=== PATIENT | male | born 1965 | race African-American/Black ===

== ENCOUNTER 2019-02-12 13:36 | Inpatient (IN) | payer OTHER ==
[2019-02-12 16:56] VITALS: BMI 23.9
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
[2019-02-12] MEDS ORDERED: MENTHOL/PHENOL 1 EACH UD MM PRN (18:02)
[2019-02-12] MEDS ORDERED: ACETAMINOPHEN 325 MG TABLET (FP) PO PRN (18:02)
[2019-02-12] MEDS ORDERED: guaiFENesin 200 MG/10 ML 10 ML UNIT-DOSE CUPS PO PRN (18:02)
[2019-02-12] MEDS ORDERED: IBUPROFEN 400 MG TABLET (FP) PO PRN (18:02)
[2019-02-12] MEDS ORDERED: MAG HYDROX/AL HYDROX/SIMETH 30 ML UNIT-DOSE CUP PO PRN (18:02)
[2019-02-12] MEDS ORDERED: MAGNESIUM HYDROX 2400MG/30ML ORAL SUSPENSION 30 ML CUP PO PRN (18:02)
[2019-02-12] MEDS ORDERED: MAGNESIUM CITRATE 300 ML BOTTLE PO PRN (18:02)
[2019-02-12] MEDS ORDERED: hydrOXYzine PAMOATE 50 MG CAPSULE (FP) PO PRN (18:02)
[2019-02-12] MEDS ORDERED: P-EPHED 60MG/TRIPROLIDI 2.5MG TABLET PO PRN (18:02)
[2019-02-12] MEDS ORDERED: LOPERAMIDE HCL 2 MG CAPSULE PO PRN (18:02)
[2019-02-12] MEDS ORDERED: NICOTINE POLACRILEX 2 MG GUM BC PRN (18:02)
[2019-02-12] MEDS: MELATONIN 5 MG TABLETS PO PRN (21:16)
[2019-02-12] MEDS: THIAMINE HCL 100 MG TABLET (FP) PO SCH (21:16)
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
[2019-02-13] MEDS: NICOTINE 14 MG/24 HOURS TOPICAL PATCH TD SCH (11:36)
[2019-02-13] MEDS: PRENATAL VITAMINS W/ FOLIC ACID TABLET (FP) PO SCH (11:36)
[2019-02-13 11:56] LABS: HEMATOCRIT 33.6 % (35.4-49); HEMOGLOBIN 10.7 GM/dL (11.7-16.9); MCH 25.3 pg (25.7-33.7); MCHC 31.8 g/dl (32.0-35.9); MEAN CELL VOLUME 79.4 fl (80-96); MEAN PLT VOLUME 9.1 fl (7.5-11.1); PLATELET COUNT 197 K/MM3 (134-434); RBC 4.23 M/mm3 (4.00-5.60); RDW 14.7 % (11.9-15.9); WHITE BLOOD COUNT 7.8 K/mm3 (4.0-10.0)
[2019-02-13 12:31] LABS: ALBUMIN 3.3 g/dl (3.4-5.0); BILIRUBIN,TOTAL 0.2 mg/dL (0.2-1); BLOOD UREA NITROGEN 24.4 mg/dL (7-18); CALCIUM 8.4 mg/dL (8.5-10.1); CREATININE 1.3 mg/dL (0.55-1.3); POTASSIUM 3.6 mmol/L (3.5-5.1)
--- NOTE | 2019-02-13 12:38 | PN ---
[facility] Progress Note Note: Vital Signs Temperature 99.1 F 02/13/19 07:08 Pulse Rate 97 H 02/13/19 07:08 Respiratory Rate 18 02/13/19 07:08 Blood Pressure 137/57 L 02/13/19 07:08 O2 Sat by Pulse Oximetry (%) Laboratory Last Values WBC 7.8 K/mm3 (4.0-10.0) 02/13/19 08:00 RBC 4.23 M/mm3 (4.00-5.60) 02/13/19 08:00 Hgb 10.7 GM/dL (11.7-16.9) L 02/13/19 08:00 Hct 33.6 % (35.4-49) L 02/13/19 08:00 MCV 79.4 fl (80-96) L 02/13/19 08:00 MCH 25.3 pg (25.7-33.7) L 02/13/19 08:00 MCHC 31.8 g/dl (32.0-35.9) L 02/13/19 08:00 RDW 14.7 % (11.9-15.9) 02/13/19 08:00 Plt Count 197 K/MM3 (134-434) 02/13/19 08:00 MPV 9.1 fl (7.5-11.1) 02/13/19 08:00 Sodium 144 mmol/L (136-145) 02/13/19 08:00 Potassium 3.6 mmol/L (3.5-5.1) 02/13/19 08:00 Chloride 110 mmol/L (98-107) H 02/13/19 08:00 Carbon Dioxide 28 mmol/L (21-32) 02/13/19 08:00 Anion Gap 5 MMOL/L (8-16) L 02/13/19 08:00 BUN 24.4 mg/dL (7-18) H 02/13/19 08:00 Creatinine 1.3 mg/dL (0.55-1.3) 02/13/19 08:00 Est GFR (CKD-EPI)AfAm 72.20 02/13/19 08:00 Est GFR (CKD-EPI)NonAf 62.29 02/13/19 08:00 Random Glucose 101 mg/dL (74-106) 02/13/19 08:00 Calcium 8.4 mg/dL (8.5-10.1) L 02/13/19 08:00 Total Bilirubin 0.2 mg/dL (0.2-1) 02/13/19 08:00 AST 481 U/L (15-37) H 02/13/19 08:00 ALT 224 U/L (13-61) H 02/13/19 08:00 Alkaline Phosphatase 65 U/L (45-117) 02/13/19 08:00 Total Protein 6.0 g/dl (6.4-8.2) L 02/13/19 08:00 Albumin 3.3 g/dl (3.4-5.0) L 02/13/19 08:00 Patient stable, abnormal labs elevated liver enzymes elevated BUN d/c magnesium containing products d/c acetaminophen +anemia repeat CBC and CMP and INR Continue to monitor
[2019-02-13] MEDS: HALOPERIDOL 5 MG TABLET (FP) PO SCH ×2 (15:17→21:27)
[2019-02-13] MEDS: BENZTROPINE MESYLATE 1 MG TABLET (FP) PO SCH ×2 (15:17→21:26)
[2019-02-13] MEDS: MELATONIN 5 MG TABLETS PO PRN (21:26)
[2019-02-13] MEDS: THIAMINE HCL 100 MG TABLET (FP) PO SCH (21:26)
[2019-02-13] MEDS ORDERED: HALOPERIDOL 5 MG TABLET (FP) PO SCH (22:00)
[2019-02-13] MEDS ORDERED: BENZTROPINE MESYLATE 1 MG TABLET (FP) PO SCH (22:00)
[2019-02-14] MEDS: BENZTROPINE MESYLATE 1 MG TABLET (FP) PO SCH ×2 (10:48→21:19)
[2019-02-14] MEDS: NICOTINE 14 MG/24 HOURS TOPICAL PATCH TD SCH (10:48)
[2019-02-14] MEDS: PRENATAL VITAMINS W/ FOLIC ACID TABLET (FP) PO SCH (10:48)
[2019-02-14] MEDS: HALOPERIDOL 5 MG TABLET (FP) PO SCH ×2 (10:48→21:19)
[2019-02-14 12:22] LABS: BASO % 0.8 % (0-2.0); EOS % 6.6 % (0-4.5); HEMATOCRIT 32.2 % (35.4-49); HEMOGLOBIN 10.4 GM/dL (11.7-16.9); LYMPH % 39.3 % (8-40); MCH 25.9 pg (25.7-33.7); MCHC 32.4 g/dl (32.0-35.9); MEAN CELL VOLUME 79.8 fl (80-96); MEAN PLT VOLUME 9.1 fl (7.5-11.1); MONO % 9.1 % (3.8-10.2); NEUT % 44.2 % (42.8-82.8); PLATELET COUNT 197 K/MM3 (134-434); RBC 4.03 M/mm3 (4.00-5.60)
[2019-02-14 12:31] LABS: ALBUMIN 3.2 g/dl (3.4-5.0); BILIRUBIN,TOTAL 0.3 mg/dL (0.2-1); BLOOD UREA NITROGEN 13.8 mg/dL (7-18); CALCIUM 8.5 mg/dL (8.5-10.1); POTASSIUM 3.5 mmol/L (3.5-5.1); TOT PROT 5.8 g/dl (6.4-8.2)
[2019-02-14 12:39] LABS: INR 0.96 (0.83-1.09); PROTHROMBIN TIME (PATIENT) 11.3 SEC (9.7-13.0)
--- NOTE | 2019-02-14 13:00 | PN ---
[facility] Progress Note Note: Laboratory Tests 02/13/19 02/13/19 02/13/19 08:00 08:00 08:00 WBC 7.8 RBC 4.23 Hgb 10.7 L Hct 33.6 L MCV 79.4 L MCH 25.3 L MCHC 31.8 L RDW 14.7 Plt Count 197 MPV 9.1 Absolute Neuts (auto) Neutrophils % Lymphocytes % Monocytes % Eosinophils % Basophils % Nucleated RBC % PT with INR INR Sodium 144 Potassium 3.6 Chloride 110 H Carbon Dioxide 28 Anion Gap 5 L BUN 24.4 H Creatinine 1.3 Est GFR (CKD-EPI)AfAm 72.20 Est GFR (CKD-EPI)NonAf 62.29 Random Glucose 101 Calcium 8.4 L Total Bilirubin 0.2 AST 481 H ALT 224 H Alkaline Phosphatase 65 Total Protein 6.0 L Albumin 3.3 L RPR Titer Nonreactive 02/14/19 02/14/19 02/14/19 08:10 08:10 08:10 WBC 8.0 RBC 4.03 Hgb 10.4 L Hct 32.2 L MCV 79.8 L MCH 25.9 MCHC 32.4 RDW 15.0 Plt Count 197 MPV 9.1 Absolute Neuts (auto) 3.5 Neutrophils % 44.2 Lymphocytes % 39.3 Monocytes % 9.1 Eosinophils % 6.6 H Basophils % 0.8 Nucleated RBC % 0 PT with INR 11.30 INR 0.96 Sodium 144 Potassium 3.5 Chloride 111 H Carbon Dioxide 29 Anion Gap 4 L BUN 13.8 Creatinine 1.0 Est GFR (CKD-EPI)AfAm 99.15 Est GFR (CKD-EPI)NonAf 85.55 Random Glucose 68 L Calcium 8.5 Total Bilirubin 0.3 AST 263 H ALT 178 H Alkaline Phosphatase 60 Total Protein 5.8 L Albumin 3.2 L RPR Titer Laboratory Tests 02/13/19 02/13/19 02/13/19 08:00 08:00 08:00 WBC 7.8 RBC 4.23 Hgb 10.7 L Hct 33.6 L MCV 79.4 L MCH 25.3 L MCHC 31.8 L RDW 14.7 Plt Count 197 MPV 9.1 Absolute Neuts (auto) Neutrophils % Lymphocytes % Monocytes % Eosinophils % Basophils % Nucleated RBC % PT with INR INR Sodium 144 Potassium 3.6 Chloride 110 H Carbon Dioxide 28 Anion Gap 5 L BUN 24.4 H Creatinine 1.3 Est GFR (CKD-EPI)AfAm 72.20 Est GFR (CKD-EPI)NonAf 62.29 Random Glucose 101 Calcium 8.4 L Total Bilirubin 0.2 AST 481 H ALT 224 H Alkaline Phosphatase 65 Total Protein 6.0 L Albumin 3.3 L RPR Titer Nonreactive 02/14/19 02/14/19 02/14/19 08:10 08:10 08:10 WBC 8.0 RBC 4.03 Hgb 10.4 L Hct 32.2 L MCV 79.8 L MCH 25.9 MCHC 32.4 RDW 15.0 Plt Count 197 MPV 9.1 Absolute Neuts (auto) 3.5 Neutrophils % 44.2 Lymphocytes % 39.3 Monocytes % 9.1 Eosinophils % 6.6 H Basophils % 0.8 Nucleated RBC % 0 PT with INR 11.30 INR 0.96 Sodium 144 Potassium 3.5 Chloride 111 H Carbon Dioxide 29 Anion Gap 4 L BUN 13.8 Creatinine 1.0 Est GFR (CKD-EPI)AfAm 99.15 Est GFR (CKD-EPI)NonAf 85.55 Random Glucose 68 L Calcium 8.5 Total Bilirubin 0.3 AST 263 H ALT 178 H Alkaline Phosphatase 60 Total Protein 5.8 L Albumin 3.2 L RPR Titer Vital Signs Temperature 99.1 F 02/13/19 07:08 Pulse Rate 97 H 02/13/19 07:08 Respiratory Rate 18 02/14/19 07:38 Blood Pressure 137/57 L 02/13/19 07:08 O2 Sat by Pulse Oximetry (%) Repeat labs show elevated liver enzymes but improving since previous result. PT 11.30 INR 0.96 Will repeat cmp on 02/18/19 oral fluids encouraged monitor clinically
--- NOTE | 2019-02-14 13:36 | EKG ---
Test Reason : Blood Pressure : / mmHG Vent. Rate : 073 BPM Atrial Rate : 073 BPM P-R Int : 134 ms QRS Dur : 094 ms QT Int : 392 ms P-R-T Axes : 051 078 058 degrees QTc Int : 431 ms NORMAL SINUS RHYTHM INCOMPLETE RIGHT BUNDLE BRANCH BLOCK NO PREVIOUS ECGS AVAILABLE Confirmed by GE MANUEL MD ([id number]) on 02/14/2019 1:35:50 PM Referred By: Confirmed By:GE MANUEL MD
[2019-02-14] MEDS: THIAMINE HCL 100 MG TABLET (FP) PO SCH (21:19)
[2019-02-14] MEDS: MELATONIN 5 MG TABLETS PO PRN (21:19)
[2019-02-15] MEDS: HALOPERIDOL 5 MG TABLET (FP) PO SCH ×2 (10:52→21:51)
[2019-02-15] MEDS: PRENATAL VITAMINS W/ FOLIC ACID TABLET (FP) PO SCH (10:52)
[2019-02-15] MEDS: BENZTROPINE MESYLATE 1 MG TABLET (FP) PO SCH ×2 (10:52→21:51)
[2019-02-15] MEDS: NICOTINE 14 MG/24 HOURS TOPICAL PATCH TD SCH (10:52)
[2019-02-15 11:17] LABS: EPI CELLS 0.7 /HPF (0-5/HPF); HYALINE CASTS 3 /lpf (0-8); PH,URINE 5.5 (5.0-8.0); URINE APPEARANCE CLEAR; URINE BACTERIA 0.2 /hpf (NEGATIVE); URINE BILIRUBIN NEGATIVE (NEGATIVE); URINE COLOR YELLOW; URINE GLUCOSE (UA) NEGATIVE (NEGATIVE); URINE KETONE TRACE (NEGATIVE); URINE LEUK ESTERASE NEGATIVE (NEGATIVE); URINE NITRITE NEGATIVE (NEGATIVE); URINE PROTEIN NEGATIVE (NEGATIVE); URINE RBC 5 /hpf (0-4); URINE UROBILINOGEN 0.2 mg/dL (0.2-1.0); URINE WBC 2 /hpf (0-5)
[2019-02-15] MEDS: THIAMINE HCL 100 MG TABLET (FP) PO SCH (21:51)
[2019-02-15] MEDS: MELATONIN 5 MG TABLETS PO PRN (21:52)
[2019-02-16] MEDS: HALOPERIDOL 5 MG TABLET (FP) PO SCH ×2 (10:23→21:29)
[2019-02-16] MEDS: BENZTROPINE MESYLATE 1 MG TABLET (FP) PO SCH ×2 (10:23→21:29)
[2019-02-16] MEDS: PRENATAL VITAMINS W/ FOLIC ACID TABLET (FP) PO SCH (10:23)
[2019-02-16] MEDS: NICOTINE 14 MG/24 HOURS TOPICAL PATCH TD SCH (10:23)
[2019-02-16] MEDS: THIAMINE HCL 100 MG TABLET (FP) PO SCH (21:29)
[2019-02-17] MEDS: PRENATAL VITAMINS W/ FOLIC ACID TABLET (FP) PO SCH (10:27)
[2019-02-17] MEDS: HALOPERIDOL 5 MG TABLET (FP) PO SCH ×2 (10:27→21:32)
[2019-02-17] MEDS: BENZTROPINE MESYLATE 1 MG TABLET (FP) PO SCH ×2 (10:27→21:32)
[2019-02-17] MEDS: NICOTINE 14 MG/24 HOURS TOPICAL PATCH TD SCH (10:27)
[2019-02-17] MEDS: THIAMINE HCL 100 MG TABLET (FP) PO SCH (21:32)
[2019-02-17] MEDS: MELATONIN 5 MG TABLETS PO PRN (21:32)
[2019-02-18] MEDS: PRENATAL VITAMINS W/ FOLIC ACID TABLET (FP) PO SCH (10:19)
[2019-02-18] MEDS: HALOPERIDOL 5 MG TABLET (FP) PO SCH ×2 (10:19→21:30)
[2019-02-18] MEDS: BENZTROPINE MESYLATE 1 MG TABLET (FP) PO SCH ×2 (10:20→21:30)
[2019-02-18] MEDS: NICOTINE 14 MG/24 HOURS TOPICAL PATCH TD SCH (10:21)
[2019-02-18 15:14] LABS: ALBUMIN 3.1 g/dl (3.4-5.0); BILIRUBIN,TOTAL 0.5 mg/dL (0.2-1); BLOOD UREA NITROGEN 15.8 mg/dL (7-18); CALCIUM 8.5 mg/dL (8.5-10.1); CREATININE 1.2 mg/dL (0.55-1.3); POTASSIUM 3.7 mmol/L (3.5-5.1); TOT PROT 5.6 g/dl (6.4-8.2)
[2019-02-18] MEDS: THIAMINE HCL 100 MG TABLET (FP) PO SCH (21:30)
[2019-02-18] MEDS: MELATONIN 5 MG TABLETS PO PRN (21:30)
[2019-02-19] MEDS: HALOPERIDOL 5 MG TABLET (FP) PO SCH ×2 (10:29→21:41)
[2019-02-19] MEDS: BENZTROPINE MESYLATE 1 MG TABLET (FP) PO SCH ×2 (10:29→21:41)
[2019-02-19] MEDS: NICOTINE 14 MG/24 HOURS TOPICAL PATCH TD SCH (10:30)
[2019-02-19] MEDS: PRENATAL VITAMINS W/ FOLIC ACID TABLET (FP) PO SCH (10:30)
[2019-02-19] MEDS: THIAMINE HCL 100 MG TABLET (FP) PO SCH (21:41)
[2019-02-19] MEDS: MELATONIN 5 MG TABLETS PO PRN (21:41)
[2019-02-20] MEDS: HALOPERIDOL 5 MG TABLET (FP) PO SCH ×2 (10:49→21:33)
[2019-02-20] MEDS: NICOTINE 14 MG/24 HOURS TOPICAL PATCH TD SCH (10:49)
[2019-02-20] MEDS: BENZTROPINE MESYLATE 1 MG TABLET (FP) PO SCH ×2 (10:49→21:33)
[2019-02-20] MEDS: PRENATAL VITAMINS W/ FOLIC ACID TABLET (FP) PO SCH (10:49)
[2019-02-20] MEDS: THIAMINE HCL 100 MG TABLET (FP) PO SCH (21:33)
[2019-02-20] MEDS: MELATONIN 5 MG TABLETS PO PRN (21:33)
[2019-02-21] MEDS: PRENATAL VITAMINS W/ FOLIC ACID TABLET (FP) PO SCH (10:25)
[2019-02-21] MEDS: NICOTINE 14 MG/24 HOURS TOPICAL PATCH TD SCH (10:26)
[2019-02-21] MEDS: HALOPERIDOL 5 MG TABLET (FP) PO SCH ×2 (10:26→21:33)
[2019-02-21] MEDS: BENZTROPINE MESYLATE 1 MG TABLET (FP) PO SCH ×2 (10:26→21:33)
--- NOTE | 2019-02-21 15:40 | PN ---
[facility] Progress Note Note: Vital Signs Temperature 98.3 F 02/21/19 06:49 Pulse Rate 90 02/21/19 06:49 Respiratory Rate 18 02/21/19 06:49 Blood Pressure 124/68 02/21/19 06:49 O2 Sat by Pulse Oximetry (%) Laboratory Tests 02/13/19 02/13/19 02/13/19 08:00 08:00 08:00 WBC 7.8 RBC 4.23 Hgb 10.7 L Hct 33.6 L MCV 79.4 L MCH 25.3 L MCHC 31.8 L RDW 14.7 Plt Count 197 MPV 9.1 Absolute Neuts (auto) Neutrophils % Lymphocytes % Monocytes % Eosinophils % Basophils % Nucleated RBC % PT with INR INR Sodium 144 Potassium 3.6 Chloride 110 H Carbon Dioxide 28 Anion Gap 5 L BUN 24.4 H Creatinine 1.3 Est GFR (CKD-EPI)AfAm 72.20 Est GFR (CKD-EPI)NonAf 62.29 Random Glucose 101 Calcium 8.4 L Total Bilirubin 0.2 AST 481 H ALT 224 H Alkaline Phosphatase 65 Total Protein 6.0 L Albumin 3.3 L Urine Color Urine Appearance Urine pH Ur Specific [place] Urine Protein Urine Glucose (UA) Urine Ketones Urine Blood Urine Nitrite Urine Bilirubin Urine Urobilinogen Ur Leukocyte Esterase Urine WBC (Auto) Urine RBC (Auto) Urine Casts (Auto) U Epithel Cells (Auto) Urine Bacteria (Auto) RPR Titer Nonreactive 02/14/19 02/14/19 02/14/19 08:10 08:10 08:10 WBC 8.0 RBC 4.03 Hgb 10.4 L Hct 32.2 L MCV 79.8 L MCH 25.9 MCHC 32.4 RDW 15.0 Plt Count 197 MPV 9.1 Absolute Neuts (auto) 3.5 Neutrophils % 44.2 Lymphocytes % 39.3 Monocytes % 9.1 Eosinophils % 6.6 H Basophils % 0.8 Nucleated RBC % 0 PT with INR 11.30 INR 0.96 Sodium 144 Potassium 3.5 Chloride 111 H Carbon Dioxide 29 Anion Gap 4 L BUN 13.8 Creatinine 1.0 Est GFR (CKD-EPI)AfAm 99.15 Est GFR (CKD-EPI)NonAf 85.55 Random Glucose 68 L Calcium 8.5 Total Bilirubin 0.3 AST 263 H ALT 178 H Alkaline Phosphatase 60 Total Protein 5.8 L Albumin 3.2 L Urine Color Urine Appearance Urine pH Ur Specific [place] Urine Protein Urine Glucose (UA) Urine Ketones Urine Blood Urine Nitrite Urine Bilirubin Urine Urobilinogen Ur Leukocyte Esterase Urine WBC (Auto) Urine RBC (Auto) Urine Casts (Auto) U Epithel Cells (Auto) Urine Bacteria (Auto) RPR Titer 02/15/19 02/18/19 08:30 08:15 WBC RBC Hgb Hct MCV MCH MCHC RDW Plt Count MPV Absolute Neuts (auto) Neutrophils % Lymphocytes % Monocytes % Eosinophils % Basophils % Nucleated RBC % PT with INR INR Sodium 143 Potassium 3.7 Chloride 108 H Carbon Dioxide 32 Anion Gap 3 L BUN 15.8 Creatinine 1.2 Est GFR (CKD-EPI)AfAm 79.53 Est GFR (CKD-EPI)NonAf 68.62 Random Glucose 77 Calcium 8.5 Total Bilirubin 0.5 AST 34 ALT 73 H Alkaline Phosphatase 54 Total Protein 5.6 L Albumin 3.1 L Urine Color Yellow Urine Appearance Clear Urine pH 5.5 Ur Specific [place] 1.030 Urine Protein Negative Urine Glucose (UA) Negative Urine Ketones Trace H Urine Blood 1+ H Urine Nitrite Negative Urine Bilirubin Negative Urine Urobilinogen 0.2 Ur Leukocyte Esterase Negative Urine WBC (Auto) 2 Urine RBC (Auto) 5 Urine Casts (Auto) 3 U Epithel Cells (Auto) 0.7 Urine Bacteria (Auto) 0.2 RPR Titer Repeat CMP show LFTS improved. Oral fluids encouraged. UA +1 blood, will repeat UA.
[2019-02-21] MEDS: THIAMINE HCL 100 MG TABLET (FP) PO SCH (21:33)
[2019-02-21] MEDS: MELATONIN 5 MG TABLETS PO PRN (21:33)
[2019-02-22] MEDS: BENZTROPINE MESYLATE 1 MG TABLET (FP) PO SCH ×2 (10:06→21:01)
[2019-02-22] MEDS: HALOPERIDOL 5 MG TABLET (FP) PO SCH ×2 (10:06→21:00)
[2019-02-22] MEDS: PRENATAL VITAMINS W/ FOLIC ACID TABLET (FP) PO SCH (10:06)
[2019-02-22] MEDS: NICOTINE 14 MG/24 HOURS TOPICAL PATCH TD SCH (10:06)
[2019-02-22 18:39] LABS: PH,URINE 6.5 (5.0-8.0); URINE APPEARANCE CLEAR; URINE BILIRUBIN NEGATIVE (NEGATIVE); URINE COLOR YELLOW; URINE GLUCOSE (UA) NEGATIVE (NEGATIVE); URINE KETONE NEGATIVE (NEGATIVE); URINE LEUK ESTERASE NEGATIVE (NEGATIVE); URINE NITRITE NEGATIVE (NEGATIVE); URINE PROTEIN NEGATIVE (NEGATIVE); URINE UROBILINOGEN 0.2 mg/dL (0.2-1.0)
[2019-02-22] MEDS: THIAMINE HCL 100 MG TABLET (FP) PO SCH (21:00)
[2019-02-22] MEDS: MELATONIN 5 MG TABLETS PO PRN (21:00)
[2019-02-23] MEDS: HALOPERIDOL 5 MG TABLET (FP) PO SCH ×2 (10:39→21:24)
[2019-02-23] MEDS: NICOTINE 14 MG/24 HOURS TOPICAL PATCH TD SCH (10:39)
[2019-02-23] MEDS: BENZTROPINE MESYLATE 1 MG TABLET (FP) PO SCH ×2 (10:39→21:24)
[2019-02-23] MEDS: PRENATAL VITAMINS W/ FOLIC ACID TABLET (FP) PO SCH (10:39)
[2019-02-23] MEDS: THIAMINE HCL 100 MG TABLET (FP) PO SCH (21:24)
[2019-02-23] MEDS: MELATONIN 5 MG TABLETS PO PRN (21:24)
[2019-02-24 06:57] VITALS: PULSE 79
[2019-02-24] MEDS: PRENATAL VITAMINS W/ FOLIC ACID TABLET (FP) PO SCH (10:43)
[2019-02-24] MEDS: BENZTROPINE MESYLATE 1 MG TABLET (FP) PO SCH ×2 (10:43→21:46)
[2019-02-24] MEDS: NICOTINE 14 MG/24 HOURS TOPICAL PATCH TD SCH (10:43)
[2019-02-24] MEDS: HALOPERIDOL 5 MG TABLET (FP) PO SCH ×2 (10:43→21:46)
--- NOTE | 2019-02-24 12:27 | PN ---
[facility] Progress Note Note: PATIENT SCHEDULED FOR DISCHARGE TOMORROW 02/25/19. AFTERCARE ARRANGED FOR PATIENT TO RETURN TO PROGRAM CASES. PATIENT ADMITTED FOR ALCOHOL AND COCAINE DEPENDENCE AND ATTENDED GROUPS WITH ENCOURAGEMENT FROM STAFF. HE WAS EVALUATED AND TREATED BY PSYCH TEAM AND ATTENDED 1:1 SESSIONS WITH COUNSELOR. LABS NOTED WITH ELEVATED LFTS WHICH IMPROVED WITH MONITORING AND ORAL HYDRATION. PATIENT IS MEDICALLY STABLE AT THIS TIME AND DENIES SI/HI. Home Medications Medication Instructions Recorded Benztropine Mesylate [Cogentin -] 1 mg PO BID 02/13/19 Haloperidol [Haldol -] 5 mg PO DAILY 02/13/19 Haloperidol [Haldol -] 10 mg PO HS 02/13/19 Laboratory Tests 02/13/19 02/13/19 02/13/19 08:00 08:00 08:00 WBC 7.8 RBC 4.23 Hgb 10.7 L Hct 33.6 L MCV 79.4 L MCH 25.3 L MCHC 31.8 L RDW 14.7 Plt Count 197 MPV 9.1 Absolute Neuts (auto) Neutrophils % Lymphocytes % Monocytes % Eosinophils % Basophils % Nucleated RBC % PT with INR INR Sodium 144 Potassium 3.6 Chloride 110 H Carbon Dioxide 28 Anion Gap 5 L BUN 24.4 H Creatinine 1.3 Est GFR (CKD-EPI)AfAm 72.20 Est GFR (CKD-EPI)NonAf 62.29 Random Glucose 101 Calcium 8.4 L Total Bilirubin 0.2 AST 481 H ALT 224 H Alkaline Phosphatase 65 Total Protein 6.0 L Albumin 3.3 L Urine Color Urine Appearance Urine pH Ur Specific [place] Urine Protein Urine Glucose (UA) Urine Ketones Urine Blood Urine Nitrite Urine Bilirubin Urine Urobilinogen Ur Leukocyte Esterase Urine WBC (Auto) Urine RBC (Auto) Urine Casts (Auto) U Epithel Cells (Auto) Urine Bacteria (Auto) RPR Titer Nonreactive 02/14/19 02/14/19 02/14/19 08:10 08:10 08:10 WBC 8.0 RBC 4.03 Hgb 10.4 L Hct 32.2 L MCV 79.8 L MCH 25.9 MCHC 32.4 RDW 15.0 Plt Count 197 MPV 9.1 Absolute Neuts (auto) 3.5 Neutrophils % 44.2 Lymphocytes % 39.3 Monocytes % 9.1 Eosinophils % 6.6 H Basophils % 0.8 Nucleated RBC % 0 PT with INR 11.30 INR 0.96 Sodium 144 Potassium 3.5 Chloride 111 H Carbon Dioxide 29 Anion Gap 4 L BUN 13.8 Creatinine 1.0 Est GFR (CKD-EPI)AfAm 99.15 Est GFR (CKD-EPI)NonAf 85.55 Random Glucose 68 L Calcium 8.5 Total Bilirubin 0.3 AST 263 H ALT 178 H Alkaline Phosphatase 60 Total Protein 5.8 L Albumin 3.2 L Urine Color Urine Appearance Urine pH Ur Specific [place] Urine Protein Urine Glucose (UA) Urine Ketones Urine Blood Urine Nitrite Urine Bilirubin Urine Urobilinogen Ur Leukocyte Esterase Urine WBC (Auto) Urine RBC (Auto) Urine Casts (Auto) U Epithel Cells (Auto) Urine Bacteria (Auto) RPR Titer 02/15/19 02/18/19 02/22/19 08:30 08:15 15:30 WBC RBC Hgb Hct MCV MCH MCHC RDW Plt Count MPV Absolute Neuts (auto) Neutrophils % Lymphocytes % Monocytes % Eosinophils % Basophils % Nucleated RBC % PT with INR INR Sodium 143 Potassium 3.7 Chloride 108 H Carbon Dioxide 32 Anion Gap 3 L BUN 15.8 Creatinine 1.2 Est GFR (CKD-EPI)AfAm 79.53 Est GFR (CKD-EPI)NonAf 68.62 Random Glucose 77 Calcium 8.5 Total Bilirubin 0.5 AST 34 ALT 73 H Alkaline Phosphatase 54 Total Protein 5.6 L Albumin 3.1 L Urine Color Yellow Yellow Urine Appearance Clear Clear Urine pH 5.5 6.5 Ur Specific [place] 1.030 1.006 L Urine Protein Negative Negative Urine Glucose (UA) Negative Negative Urine Ketones Trace H Negative Urine Blood 1+ H Negative Urine Nitrite Negative Negative Urine Bilirubin Negative Negative Urine Urobilinogen 0.2 0.2 Ur Leukocyte Esterase Negative Negative Urine WBC (Auto) 2 Urine RBC (Auto) 5 Urine Casts (Auto) 3 U Epithel Cells (Auto) 0.7 Urine Bacteria (Auto) 0.2 RPR Titer Vital Signs Temperature 97.6 F 02/24/19 06:56 Pulse Rate 79 02/24/19 06:56 Respiratory Rate 18 02/24/19 06:56 Blood Pressure 115/52 L 02/24/19 06:56 O2 Sat by Pulse Oximetry (%) ROS: DENIES CHEST PAIN, SOB, DIZZINESS AND ALCOHOL CRAVINGS PE: ALERT AND ORIENTED X 3 SKIN WARM AND DRY CAR S1S2, RRR, NO MURMURS OR GALLOPS RESP CTA BL, NO WHEEZES OR RALES GI NT, ND EXT FULL ROM, AMB AD BECKI NO TREMORS A/P: ETOH DEPENDENCE COCAINE DEPENDENCE STABLE FOR D/C IN AM
[2019-02-24] MEDS: THIAMINE HCL 100 MG TABLET (FP) PO SCH (21:46)
[2019-02-25 07:14] VITALS: BP 122/78; TEMP 97
--- NOTE | 2019-02-25 08:47 | DS ---
[facility] Discharge Summary - [facility] Discharge Summary Admission Date: 02/12/19 Discharge Date: 02/25/19 - History Present History: Alcohol dependence, Cannabis dependence, Cocaine dependence Pertinent Past History: 53 y.o. man with a history of alcohol, crack-cocaine and marijuana dependence. He reports he previously completed detox "many years ago". Longest period of illicit drug and alcohol abstinence has been 15 years. - Discharge Physical Exam Vital Signs: Vital Signs Temperature 97 F L 02/25/19 07:13 Pulse Rate 79 02/25/19 07:13 Respiratory Rate 18 02/25/19 07:13 Blood Pressure 122/78 02/25/19 07:13 O2 Sat by Pulse Oximetry (%) Pertinent Admission Physical Exam Findings: - Physical General Appearance: No Apparent Distress, HEENTM: Normocephalic, Respiratory: Lungs Clear, Neck: Supple, Trachea in good position Cardiology: Regular Rhythm & Rate Abdominal: +Bowel Sounds, Non Tender, Flat, Sof Musculoskeletal: full range of Motion, Gait Steady, Pelvis Stable Neurological: 2-12 intact Integumentary: Color consistent throughout trunk and extremities, good skin turgor. - Treatment Discharge Condition: Discharge condition good (Medically stable for discharge. Patient will be monitored by the ACT Team.) Hospital Course: patient was adherent to treatment plan and medication regimen, was seen by psychiatric service and had 1:1 with his counselor. He had no critical medical issues, but was observed for an elevation of LFTs, which did not have a significant effect on his health. - Medication Discharge Medications: Ambulatory Orders Benztropine Mesylate [Cogentin -] 1 mg PO BID #60 tablet 02/25/19 Haloperidol [Haldol -] 5 mg PO DAILY #30 tablet 02/25/19 Haloperidol [Haldol -] 10 mg PO HS #60 tablet 02/25/19 - Medication-Assisted Treatment (MAT) Medication-Assisted Treatment (MAT): No - Discharge Instructions Diet, activity, other medical instructions: Diet: as tolerated Activity: as tolerated Other medical instructions: Please follow up with aftercare referral. - Follow-up Referral Minutes to complete discharge: 20 - AMA Did Patient Leave Against Medical Advice: No
== END 2019-02-25 09:52 | disposition home or self-care (01) | DRG 772 ==
LOC: YASAS 13:36 → Y3W 18:16
PROVIDERS: ADMIT Neuromusculoskeletal Medicine & OMM; ATTEND Neuromusculoskeletal Medicine & OMM
PROC: HZ42ZZZ Group Counseling for Substance Abuse Treatment, Cognitive-Behavioral (ICD-10-PCS; principal; 2019-02-12)
DX: F10.20 Alcohol dependence, uncomplicated (principal); F14.20 Cocaine dependence, uncomplicated; F12.20 Cannabis dependence, uncomplicated; F17.210 Nicotine dependence, cigarettes, uncomplicated; F20.9 Schizophrenia, unspecified; D64.9 Anemia, unspecified; S05.12XA Contusion of eyeball and orbital tissues, left eye, initial encounter; Y04.0XXA Assault by unarmed brawl or fight, initial encounter; Y93.89 Activity, other specified; Y92.89 Other specified places as the place of occurrence of the external cause; Y99.8 Other external cause status; Z59.0 Homelessness
CPT/HCPCS: 36415; 80053; 81003; 85025; 85027; 85610; 86593; 93005; 93010